=== PATIENT | male | born 1980 | race Caucasian/White ===

== ENCOUNTER 2021-08-30 03:12 | Emergency (ER) | payer OTHER ==
[2021-08-30] MEDS ORDERED: PREDNISONE 20 MG TAB PO STA (03:44)
[2021-08-30] MEDS ORDERED: PREDNISONE 20 MG TAB ONE (03:58)
[2021-08-30] MEDS ORDERED: ONDANSETRON ODT4 MG PO (04:24)
[2021-08-30] MEDS ORDERED: AZITHROMYCIN250 MG PO (04:24)
== END 2021-08-30 04:30 | disposition home or self-care (01) ==
LOC: ER 03:21
DX: J02.9 Acute pharyngitis, unspecified (principal); R06.02 Shortness of breath; R11.0 Nausea
CPT/HCPCS: 83518; 87070; 99282; J7512